=== PATIENT | female | born 1990 | race Caucasian/White ===

== ENCOUNTER 2018-08-02 18:22 | Emergency (ER) | payer MEDICAID, OTHER ==
[~2018-08-02] VITALS: Ht 154.9 cm; Wt 65.0 kg
[2018-08-02] MEDS ORDERED: ONDANSETRON HCL 4MG/2ML INJ IV STA (23:09)
[2018-08-02] MEDS ORDERED: KETOROLAC 30MG/ML VIAL IV STA (23:09)
[2018-08-02] MEDS ORDERED: SODIUM CHLORIDE 0.9% 1,000 ML IV ONE (23:09)
[2018-08-02] MEDS ORDERED: MORPHINE SULFATE 4 MG/ML CPJ (NOT FOR IM USE) IV STA (23:09)
[2018-08-03 00:49] LABS: CLARITY URINE CLEAR (CLEAR); COLOR URINE YELLOW (YELLOW); KETONES URINE TRACE (NEGATIVE); LEUKOCYTE ESTERASE URINE NEGATIVE (NEGATIVE); NITRITE URINE NEGATIVE (NEGATIVE); OCCULT BLOOD URINE NEGATIVE (NEGATIVE); PH URINE 5.5 (4.5-8.0); PROTEIN URINE NEGATIVE (NEGATIVE); SPECIFIC GRAVITY URINE 1.026 (1.005-1.030)
[2018-08-03 01:24] LABS: CHLORIDE 105 mEq/L (98-107); HCG SCREEN POSITIVE; INR 1.1; PROTHROMBIN TIME 10.7 sec (9.1-11.1)
[2018-08-03 01:25] LABS: BASOPHILS % 0.6 % (0.0-2.0); EOSINOPHILS % 0.7 % (0.0-5.0); HEMOGLOBIN. 14.1 g/dL (12.0-16.0); LYMPHOCYTES % 27.7 % (20.0-50.0); MEAN CORPUSCULAR HEMOGLOBIN 30.8 pg (28.0-32.0); MEAN PLATELET VOLUME 9.7 fl (7.4-10.4); MONOCYTES % 6.6 % (2.0-8.0); NEUTROPHILS % 64.4 % (40.0-76.0); PLATELET 226 x1000/uL (130-400); RED BLOOD CELL COUNT 4.57 mill/uL (4.2-5.4); RED CELL DISTRIBUTION WIDTH 12.9 % (11.6-14.6)
[2018-08-03 01:40] LABS: B-HCG QUANTITATIVE 289 mIU/mL (<3)
[2018-08-03 02:28] VITALS: BP 93/51
== END 2018-08-03 02:40 | disposition home or self-care (01) ==
LOC: ER 18:22
DX: O20.0 Threatened abortion (principal); O21.0 Mild hyperemesis gravidarum; O99.331 Smoking (tobacco) complicating pregnancy, first trimester; Z3A.00 Weeks of gestation of pregnancy not specified; Z98.890 Other specified postprocedural states
CPT/HCPCS: 36415; 76830; 76856; 80053; 81003; 81025; 83605; 83690; 84702; 84703; 85025; 85610; 87040; 87086; 96361; 96374; 99285; J2405; J7030; Z7610; J2270

== ENCOUNTER 2018-11-09 13:02 | Emergency (ER) | payer MEDICAID ==
[~2018-11-09] VITALS: Ht 154.9 cm; Wt 66.5 kg
[2018-11-09] MEDS ORDERED: SODIUM CHLORIDE 0.9% 1,000 ML IV ONE (22:15)
[2018-11-09] MEDS ORDERED: ACETAMINOPHEN 325MG TABLET PO ONE (22:15)
[2018-11-09 23:24] LABS: CHLORIDE 106 mEq/L (98-107)
[2018-11-09 23:29] LABS: BASOPHILS % 0.4 % (0.0-2.0); EOSINOPHILS % 0.6 % (0.0-5.0); HEMATOCRIT. 38.4 % (36.0-48.0); HEMOGLOBIN. 12.6 g/dL (12.0-16.0); LYMPHOCYTES % 23.8 % (20.0-50.0); MEAN CORPUSCULAR HEMOGLOBIN 30.3 pg (28.0-32.0); MEAN CORPUSCULAR VOLUME 92.3 fL (81.0-99.0); MONOCYTES % 5.1 % (2.0-8.0); NEUTROPHILS % 70.1 % (40.0-76.0); PLATELET 224 x1000/uL (130-400); RED BLOOD CELL COUNT 4.16 mill/uL (4.2-5.4); RED CELL DISTRIBUTION WIDTH 12.6 % (11.6-14.6)
[2018-11-09 23:36] LABS: PARTIAL THROMBOPLASTIN TIME 25.7 sec (23.4-31.0); PROTHROMBIN TIME 10.4 sec (9.1-11.1)
[2018-11-10 01:25] VITALS: BP 96/51
== END 2018-11-10 01:27 | disposition home or self-care (01) ==
LOC: ER 13:02
DX: O26.892 Other specified pregnancy related conditions, second trimester (principal); S30.1XXA Contusion of abdominal wall, initial encounter; O99.89 Other specified diseases and conditions complicating pregnancy, childbirth and the puerperium; M79.662 Pain in left lower leg; M25.512 Pain in left shoulder; I10 Essential (primary) hypertension; F17.200 Nicotine dependence, unspecified, uncomplicated; Z98.890 Other specified postprocedural states; Z90.89 Acquired absence of other organs; Z3A.19 19 weeks gestation of pregnancy; W50.0XXA Accidental hit or strike by another person, initial encounter; Y93.39 Activity, other involving climbing, rappelling and jumping off; Y92.89 Other specified places as the place of occurrence of the external cause; Y99.8 Other external cause status
CPT/HCPCS: 36415; 76705; 76805; 80048; 81025; 85025; 85610; 85730; 86850; 86900; 86901; 93005; 93971; 99284; J7030

== ENCOUNTER 2019-01-30 21:16 | Observation (INO) | payer MEDICAID ==
[~2019-01-30] VITALS: Ht 154.9 cm; Wt 72.6 kg
[2019-01-30] MEDS ORDERED: PREN1TAB78 MT (22:20)
[2019-01-30] MEDS ORDERED: ACETAMINOPHEN 500MG TABLET PO ONE (22:45)
== END 2019-01-31 01:00 | disposition home or self-care (01) ==
LOC: 8 EST LDRP 21:16
PROVIDERS: ADMIT Specialist; ATTEND Specialist
DX: O26.893 Other specified pregnancy related conditions, third trimester (principal); R10.9 Unspecified abdominal pain; M79.651 Pain in right thigh; M79.652 Pain in left thigh; Z3A.31 31 weeks gestation of pregnancy
CPT/HCPCS: 76805; 76818; 99281; G0378

== ENCOUNTER 2019-12-04 17:34 | Emergency (ER) | payer MEDICAID ==
[~2019-12-04] VITALS: Ht 165.1 cm; Wt 66.0 kg
[~2019-12-04 17:34] MED LIST: PREN1TAB78 MT
[2019-12-04 17:53] VITALS: BP 123/66
== END 2019-12-04 20:09 | disposition home or self-care (01) ==
LOC: ER 17:34
DX: O26.851 Spotting complicating pregnancy, first trimester (principal); O16.1 Unspecified maternal hypertension, first trimester; Z3A.01 Less than 8 weeks gestation of pregnancy; Z98.890 Other specified postprocedural states
CPT/HCPCS: 99281

== ENCOUNTER 2020-08-19 22:57 | Emergency (ER) | payer MEDICAID, OTHER ==
[~2020-08-19] VITALS: Ht 162.6 cm; Wt 59.0 kg
[2020-08-19 23:04] VITALS: BP 122/83
[2020-08-20] MEDS ORDERED: ACETAMINOPHEN 500MG TABLET PO NR
[2020-08-20] MEDS ORDERED: CIPROFLOXACIN 0.3% OPHTH SOLN 2.5ML BOTHEYE NR
== END 2020-08-20 00:14 | disposition home or self-care (01) ==
LOC: ER 22:57
DX: J45.909 Unspecified asthma, uncomplicated; I10 Essential (primary) hypertension
CPT/HCPCS: 99283

== ENCOUNTER 2021-04-28 19:31 | Emergency (ER) | payer MEDICAID, OTHER ==
[~2021-04-28] VITALS: Ht 154.9 cm; Wt 65.9 kg
[2021-04-28] MEDS ORDERED: KETOROLAC 30MG/ML VIAL IV STA (20:15)
[2021-04-28] MEDS ORDERED: SODIUM CHLORIDE 0.9% 1,000 ML IV ONE (20:15)
[2021-04-28] MEDS ORDERED: METOCLOPRAMIDE HCL 10MG/2ML VIAL IV STA (20:15)
[2021-04-28 20:52] LABS: BASOPHILS % 0.4 % (0.0-2.0); EOSINOPHILS % 0.1 % (0.0-5.0); HEMATOCRIT. 43.7 % (36.0-48.0); HEMOGLOBIN. 15.2 g/dL (12.0-16.0); LYMPHOCYTES % 14.7 % (20.0-50.0); MEAN CORPUSCULAR HEMOGLOBIN 32.3 pg (28.0-32.0); MEAN CORPUSCULAR VOLUME 92.7 fL (81.0-99.0); MONOCYTES % 5.9 % (2.0-8.0); NEUTROPHILS % 78.9 % (40.0-76.0); PLATELET 238 x1000/uL (130-400); RED BLOOD CELL COUNT 4.71 mill/uL (4.2-5.4); RED CELL DISTRIBUTION WIDTH 13.8 % (11.6-14.6)
[2021-04-28 20:57] LABS: CHLORIDE 105 mEq/L (98-107)
[2021-04-28] MEDS ORDERED: METO-293 MT (23:41)
[2021-04-28 23:55] VITALS: BP 123/82
== END 2021-04-29 00:04 | disposition home or self-care (01) ==
LOC: ER 19:31
DX: R10.9 Unspecified abdominal pain (principal); R11.2 Nausea with vomiting, unspecified; J45.909 Unspecified asthma, uncomplicated; I10 Essential (primary) hypertension
CPT/HCPCS: 36415; 71045; 80053; 81025; 83690; 84484; 85025; 93005; 96374; 96375; 99285; J1885; J2765; J7030